=== PATIENT | male | born 1960 | race Caucasian/White ===

== ENCOUNTER 2017-01-11 13:54 | Emergency (ER) | payer OTHER ==
[~2017-01-11] VITALS: Ht 182.9 cm; Wt 115.7 kg
--- NOTE | ~2017-01-11 | CT4 ---
[facility] A Service of [facility] & [facility] RADIOLOGY TEXT RESULTS PATIENT: EVLIA PROCTOR LOCATION: [employer] : 60 UNIT #: [id number] AGE: [address]: Jennifer Merino MD SEX: M ORDER DR: [id number] [facility] [address] [place], [place] [address] [id number] MR#: [id number] Acc #: [id number] NAME: ELVIA PROCTOR : 1960 SEX: M STUDY DATE/TIME: 01/11/2017 14:57 UNIT: JARVIS ROOM: STUDY DESCRIPTION: CT Abd and Pelv Wo Cont Attending Physician: Micah Bell M.D. Ordering Physician: Micah Bell M.D. Primary Care Physician: Rajan Torres M.D. MEDICAL IMAGING REPORT This report is preliminary unless electronic signature is present EXAM CT abdomen and pelvis, 01/11/2017. INDICATIONS Right flank pain radiating to the right lower quadrant and groin that started today. TECHNIQUE Axial images were obtained through the abdomen and pelvis without contrast. Multiplanar reformats were obtained. This CT exam was performed with one or more of the following radiation dose reduction techniques: automatic exposure control, adjustment of mA and/or kV according to patient size, and iterative reconstruction. COMPARISON No comparison. FINDINGS ABDOMEN: There is coronary artery disease. The lung bases are clear. There is left-side gynecomastia. Gallbladder is unremarkable. There is mild right hydronephrosis and hydroureter with fat stranding along the course of the ureter on the right side. No obstructing lesion is seen at this time, and this could reflect a recently passed stone. Bilateral nonobstructing stones are present in the kidneys. The largest stone is in the lower pole of the right kidney measuring 9 mm in size. There are 2 tiny subcentimeter hypodense lesions in the right lobe of the liver. These are probably small cysts in the absence of any known malignancy. A gastric band is present. Unopacified GI tract is otherwise unremarkable. PELVIS: The appendix is normal. The remainder of the unopacified GI tract is normal, as well. There are no lower ureteral stones. Urinary bladder is normal. 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 [facility] A Service of [facility] RADIOLOGY TEXT RESULTS PATIENT: ELVIA PROCTOR LOCATION: [employer] : 60 UNIT #: [id number] AGE: [address]: Jennifer Merino MD SEX: M ORDER DR: IMPRESSION 1. Mild right hydronephrosis and hydroureter with fat stranding around the kidney and ureter. No obstructing lesion is seen, and this may reflect a recently passed stone. 2. Bilateral nonobstructing renal stones. 3. Status post gastric band placement. The unopacified GI tract, including the appendix, is otherwise unremarkable. 4. 2 subcentimeter hypodensities in the right lobe of the liver. In the absence of a known malignancy, these are probably small benign cysts. Dictated by... Janes Crum Jr., M.D. THIS IS AN ELECTRONICALLY VERIFIED REPORT Janes Crum Jr., M.D. at 01/11/2017 4:41 PM EMELI/arjun TD: 01/11/2017 16:26 JOB #: [id number] MEDICAL IMAGING REPORT Page 1 of 1 COPY
[~2017-01-11 13:54] MED LIST: ASPIRIN PO; ATENOLOL PO; CAYENNE PO; CERTAGEN PO; CHROMIUM PO; CITRACAL200 MG PO; CO Q 10 PO; DICLOFENAC PO; FISH OIL PO; HUMALOG100 U/ML SUBQ; LANTUS100 U/ML SUBQ; LISINOPRIL PO; METFORMIN PO; TRICOR PO
[2017-01-11 15:27] LABS: BASOPHIL# 0.1 X10e3 (0-0.3); BASOPHIL% 1.2 % (0-2.5); DIFF IND NO; EOSINOPHIL# 0.2 X10e3 (0-0.7); EOSINOPHIL% 2.1 % (0.0-7.0); HEMATOCRIT 44.7 % (38.0-50.0); HEMOGLOBIN 15.1 gm/dL (13.0-16.0); LYMPHOCYTE% 12.9 % (17.0-45.0); MEAN CORPUSCULAR HEMOGLOBIN 28.7 PG (28-34); MEAN CORPUSCULAR HGB CONC 33.8 g/dL (30-36); MEAN PLATELET VOLUME 8.2 FL (6.5-11.5); MONOCYTE# 0.6 X10e3 (0-1.0); MONOCYTE% 7.4 % (3.0-12.0); NEUTROPHIL% 76.4 % (40-75); PLATELET COUNT 205 X10e3 (140-420); RED BLOOD COUNT 5.26 X10e (3.90-5.60); RED CELL DISTRIBUTION WIDTH 13.8 % (11.0-15.5); WHITE BLOOD COUNT 7.8 X10e3 (4.0-10.5)
[2017-01-11 15:50] LABS: ALBUMIN SERUM 4.6 g/dL (3.5-5.0); BILIRUBIN, DIRECT 0.1 mg/dL (0.0-0.2); BILIRUBIN,INDIRECT 0.6 mg/dL (0.0-0.9); BILIRUBIN,TOTAL 0.7 mg/dL (0.2-2.0); BUN/CREATININE RATIO 18.57; CALCIUM SERUM 9.2 mg/dL (8.4-10.2); CREATININE SERUM 0.7 mg/dL (0.6-1.4); GLOM FILT RATE Estimated 105.5 mL/min (>60); POTASSIUM 3.8 mmol/L (3.5-5.1); PROTEIN TOTAL SERUM 7.7 g/dL (6.0-8.3)
[2017-01-11 16:43] LABS: URINE SOURCE CLEAN CATCH
[2017-01-11 16:47] LABS: URINE APPEARANCE CLEAR; URINE BILIRUBIN NEG (NEG); URINE BLOOD 4+ (NEG); URINE COLOR YELLOW; URINE GLUCOSE 1000 MG/DL (NORM); URINE KETONE NEG (NEG); URINE LEUKOCYTE ESTERASE NEG (NEG); URINE NITRATE NEG (NEG); URINE PROTEIN NEG (NEG); URINE SPECIFIC GRAVITY 1.015 (1.003-1.035); URINE UROBILINOGEN NORM (NORM)
[2017-01-11 17:19] LABS: URBCS1 AUWI 25-50 /[HPF] (0-2)
[2017-01-11 17:20] LABS: CULTURE INDICATED? YES; URINE BACTERIA AUWI 1+ (NEGATIVE); URINE SQUAMOUS EPITHELIAL CELL FEW /[HPF]
== END 2017-01-11 18:04 | disposition home or self-care (01) ==
LOC: CED 13:54
PROVIDERS: Emergency Medicine
DX: N23 Unspecified renal colic (principal)
CPT/HCPCS: 36415; 74176; 80048; 80076; 81003; 83690; 85025; 87086; 96374; 96375; 99284; J2270; J2405